=== PATIENT | male | born 1975 | race Caucasian/White ===

== ENCOUNTER 2024-03-29 15:55 | Emergency (ER) | payer MEDICAID ==
[~2024-03-29] VITALS: Ht 177.8 cm; Wt 114.7 kg
[2024-03-29] MEDS ORDERED: CARV-50 PO (16:23)
[2024-03-29 16:31] VITALS: BP 218/108; PULSE 76; RESP 16; TEMP 98; O2SAT 98
== END 2024-03-29 16:32 | disposition home or self-care (01) ==
LOC: ER 15:55
DX: Z76.0 Encounter for issue of repeat prescription (principal); I10 Essential (primary) hypertension
CPT/HCPCS: 99281

== ENCOUNTER 2025-01-28 15:42 | Emergency (ER) | payer MEDICAID ==
[~2025-01-28] VITALS: Ht 172.7 cm; Wt 108.5 kg
[2025-01-28 17:02] LABS: BASOPHILS # (AUTO) 0.1 X10'3 (0-0.2); BASOPHILS % (AUTO) 0.6 % (0-1); EOSINOPHILS # (AUTO) 0.4 X10'3 (0-0.9); HEMOGLOBIN 13.3 g/dl (14.0-17.9); LYMPHOCYTES # (AUTO) 2.5 X10'3 (1.1-4.8); LYMPHOCYTES % (AUTO) 23.3 % (21-51); MEAN CORPUSCULAR HEMOGLOBIN 27.6 PG (27.0-31.0); MEAN CORPUSCULAR VOLUME 81.2 FL (78-98); MEAN PLATELET VOLUME 8.8 FL (7.4-10.4); MONOCYTES # (AUTO) 1.1 X10'3 (0-0.9); MONOCYTES % (AUTO) 9.7 % (2-12); NEUTROPHILS # (AUTO) 6.8 X10'3 (1.8-7.7); NEUTROPHILS % (AUTO) 62.4 % (42-75); PLATELET COUNT 278 X10'3 (140-440); RED BLOOD COUNT 4.81 X10'6 (4.70-6.10); RED CELL DISTRIBUTION WIDTH 13.6 % (11.5-14.5); WHITE BLOOD COUNT 10.9 X10'3 (4.5-11.0)
[2025-01-28 17:08] LABS: ALANINE AMINOTRANSFERASE 22 U/L (12-78); ALBUMIN 3.6 G/DL (3.4-5.0); ALBUMIN/GLOBULIN RATIO 0.9 (1.1-1.5); ALKALINE PHOSPHATASE 96 IU/L (46-116); ANION GAP 10 (8-16); ASPARTATE AMINO TRANSFERASE 16 U/L (10-37); BLOOD UREA NITROGEN 14 MG/DL (7-18); BUN/CREATININE RATIO 15.9 (10.0-20.0); CALCIUM 8.9 MG/DL (8.5-10.1); CHLORIDE 98 MMOL/L (99-107); CREATININE 0.88 MG/DL (0.60-1.10); GLUCOSE 92 MG/DL (70-104); POTASSIUM 3.3 MMOL/L (3.5-5.1); SODIUM 138 MMOL/L (135-145); TOTAL PROTEIN 7.6 G/DL (6.4-8.2); eCRCL 95 ML/MIN; eGFR > 90 ML/MIN
[2025-01-28 17:16] LABS: PRO BRAIN NATRIURETIC PEPTIDE 96 PG/ML (0-125)
[2025-01-28] MEDS ORDERED: HYDR25TA4 PO (20:07)
[2025-01-28] MEDS ORDERED: MECL-302 PO (20:07)
[2025-01-28] MEDS: lisinopril 10 MG tablet PO ONE (20:27)
[2025-01-28] MEDS: HYDROchlorothiazide 25mg tablet PO ONE (20:27)
[2025-01-28 21:14] VITALS: BP 173/78; PULSE 80; RESP 16; TEMP 98.2; O2SAT 97
== END 2025-01-28 21:19 | disposition home or self-care (01) ==
LOC: ER 15:43
DX: I10 Essential (primary) hypertension (principal); R42 Dizziness and giddiness; E11.9 Type 2 diabetes mellitus without complications; E78.00 Pure hypercholesterolemia, unspecified; M19.90 Unspecified osteoarthritis, unspecified site; Z98.890 Other specified postprocedural states
CPT/HCPCS: 36415; 71045; 80053; 83880; 84484; 85025; 93005; 99285